=== PATIENT | male | born 1930 | race Caucasian/White ===

== ENCOUNTER 2016-02-26 08:54 | Observation (INO) | payer OTHER ==
[~2016-02-26] VITALS: Ht 167.6 cm; Wt 84.1 kg
[~2016-02-26 08:54] MED LIST: ALTACE10 MG PO; ALTACE2.5 MG PO; ALTACE5 MG PO; ASMANEX TW200 MICRO1 IH; ASPIR-LOW81 MG PO; ASPIRIN81 M1 PO; ASTEPRO 0.15%30 ML BOTH NARES; CENTRUM COMPLE1 EACH PO; CENTRUM SILVER1 EAC3 PO; CENTRUM SILVER1 EACH PO; CLARITIN,ALAVAR10 MG PO; CRESTOR40 MG PO; DIAZEPAM5 MG PO; FINASTERIDE5 M1 PO; FLONASE16 G1 BOTH NARES; IMDUR30 MG PO; LEVOTHROID,S0.112 MG PO; LEVOTHYROXINE125 MCG PO; MECLIZINE HCL12.5 M1 PO; PROSCAR5 MG PO; PROTONIX40 MG PO; TOPROL XL25 MG PO; TOPROL XL50 MG PO; UROXATRAL10 MG PO; XARELTO15 MG PO
[2016-02-26 10:07] LABS: EOSINOPHIL (%) 1.2 % (0-5); EOSINOPHIL COUNT 0.1 K/uL (0-0.3); HEMATOCRIT 44.8 % (38.0-50.0); LYMPHOCYTE COUNT 0.6 K/uL (1.0-2.8); MCHC 34.6 G/DL (30.0-36.0); MCV 104.2 FL (86-99); MEAN PLAT.VOLUME 10.2 uM^3 (9.0-12.4); MONOCYTE (%) 7.1 % (3-12); MONOCYTE COUNT 0.3 K/uL (0-0.8); NEUTROPHIL (%) 76.5 % (45-76); NEUTROPHIL COUNT 3.2 K/uL (1.8-6.4); PLATELET COUNT 117 K/uL (156-360); RBC DIS.WIDTH-CV 12.2 % (11.8-14.6); RBC DIS.WIDTH-SD 45.5 % (39-53); WHITE BLOOD COUNT 4.2 K/uL (4.1-10.2)
[2016-02-26 10:19] LABS: CHLORIDE 105 mEq/L (99-109); SODIUM 137 mEq/L (136-147)
[2016-02-26 10:21] LABS: GLUCOSE 129 mg/dL (70-99)
[2016-02-26 10:22] LABS: ANION GAP 10 MEQ/L (2-14)
[2016-02-26 10:25] LABS: GFR ESTIMATE (CALCULATED) > 59 mL/min/; UREA NITROGEN (BUN) 16 mg/dL (9-23)
[2016-02-26 10:26] LABS: TROP-I INTERPRETATION NEGATIVE; TROPONIN-I < 0.01 ng/mL (0.0-0.30)
[2016-02-26] MEDS ORDERED: XARELTO20 MG PO (11:11)
[2016-02-26] MEDS ORDERED: AMIODARONE HCL200 MG PO (11:12)
[2016-02-26] MEDS ORDERED: FISH OIL 1,0001 EAC7 PO (11:16)
[2016-02-26] MEDS ORDERED: ALIGN4 MG PO (11:16)
[2016-02-26] MEDS ORDERED: FIBER500 MG PO (11:16)
[2016-02-26 13:05] VITALS: BP 172/74
[2016-02-26 16:00] VITALS: BP 158/74
[2016-02-26 16:12] LABS: TROP-I INTERPRETATION NEGATIVE; TROPONIN-I < 0.01 ng/mL (0.0-0.30)
[2016-02-26 20:23] VITALS: BP 173/77
[2016-02-26 23:30] LABS: TROP-I INTERPRETATION NEGATIVE; TROPONIN-I < 0.01 ng/mL (0.0-0.30)
[2016-02-27 00:14] VITALS: BP 120/65
[2016-02-27 04:46] VITALS: BP 120/62
[2016-02-27 08:00] VITALS: BP 195/82
[2016-02-27 12:00] VITALS: BP 167/72
== END 2016-02-27 14:15 | disposition home or self-care (01) ==
LOC: EME 08:54 → EDOF 11:15 → 5WEST 11:15 → EDOF 11:15 → 5WEST 12:10
PROVIDERS: Emergency Medicine; Family Medicine
DX: R07.89 Other chest pain (principal); I48.0 Paroxysmal atrial fibrillation; I25.10 Atherosclerotic heart disease of native coronary artery without angina pectoris; Z95.5 Presence of coronary angioplasty implant and graft; I10 Essential (primary) hypertension; E78.5 Hyperlipidemia, unspecified; E03.9 Hypothyroidism, unspecified; J45.909 Unspecified asthma, uncomplicated; I49.5 Sick sinus syndrome; M79.602 Pain in left arm; Z87.891 Personal history of nicotine dependence; Z82.49 Family history of ischemic heart disease and other diseases of the circulatory system; Z88.1 Allergy status to other antibiotic agents; Z88.5 Allergy status to narcotic agent
CPT/HCPCS: 71020; 80048 91; 84484; 85025 91; 93005; 94640; 94640 76; 99281; 99285; G0378

== ENCOUNTER 2016-02-28 12:03 | Day surgery (SDC) | payer OTHER ==
[~2016-02-28] VITALS: Ht 175.3 cm; Wt 85.0 kg
[~2016-02-28 12:03] MED LIST changes: +ALIGN4 MG PO; +AMIODARONE HCL200 MG PO; +FIBER500 MG PO; +FISH OIL 1,0001 EAC7 PO; +XARELTO20 MG PO
[2016-02-28 17:15] VITALS: BP 152/70
[2016-02-28 19:00] VITALS: BP 154/72
[2016-02-29 00:02] VITALS: BP 158/82
[2016-02-29 04:12] VITALS: BP 142/64
[2016-02-29 07:19] VITALS: BP 140/74
[2016-02-29 13:09] VITALS: BP 145/65
== END 2016-02-29 13:19 | disposition home or self-care (01) ==
LOC: CATH 12:03 → 2SOUTH 14:53 → 4EAST 14:53
DX: I49.5 Sick sinus syndrome (principal); I48.91 Unspecified atrial fibrillation; E78.5 Hyperlipidemia, unspecified; K21.9 Gastro-esophageal reflux disease without esophagitis; I10 Essential (primary) hypertension; Z95.1 Presence of aortocoronary bypass graft; J44.9 Chronic obstructive pulmonary disease, unspecified; E03.9 Hypothyroidism, unspecified
CPT/HCPCS: 71010; 93005; C1785; C1892; C1894; C1898; G0378; J0690; J1200; J2250; J3010; S0020

== ENCOUNTER 2016-11-26 13:51 | Observation (INO) | payer OTHER ==
[~2016-11-26] VITALS: Ht 175.3 cm; Wt 78.4 kg
[2016-11-26 14:20] LABS: EOSINOPHIL (%) 1.4 % (0-5); EOSINOPHIL COUNT 0.1 K/uL (0-0.3); HEMATOCRIT 39.6 % (38.0-50.0); IMMATURE GRANULOCYTE (%) 0.6 % (0.0-0.7); INSTRUMENT ABS NEUTROPHIL CT 3.8 K/uL; LYMPHOCYTE COUNT 0.7 K/uL (1.0-2.8); MCH 36.3 PG (29.0-34.0); MCHC 34.6 G/DL (30.0-36.0); MEAN PLAT.VOLUME 9.7 uM^3 (9.0-12.4); MONOCYTE (%) 7.2 % (3-12); MONOCYTE COUNT 0.4 K/uL (0-0.8); NEUTROPHIL (%) 76.4 % (45-76); NEUTROPHIL COUNT 3.8 K/uL (1.8-6.4); PLATELET COUNT 157 K/uL (156-360); RBC DIS.WIDTH-SD 46.6 % (39-53); RED BLOOD COUNT 3.77 M/uL (4.00-5.50)
[2016-11-26 14:29] LABS: CHLORIDE 101 mEq/L (99-109); POTASSIUM 4.1 mEq/L (3.7-5.4); SODIUM 133 mEq/L (136-147)
[2016-11-26 14:31] LABS: GLUCOSE 96 mg/dL (70-99)
[2016-11-26 14:33] LABS: ANION GAP 6 MEQ/L (2-14)
[2016-11-26 14:35] LABS: GFR ESTIMATE (CALCULATED) > 59 mL/min/
[2016-11-26 14:36] LABS: UREA NITROGEN (BUN) 16 mg/dL (9-23)
[2016-11-26 14:40] LABS: TROP-I INTERPRETATION NEGATIVE; TROPONIN-I < 0.01 ng/mL (0.0-0.30)
[2016-11-26 17:34] VITALS: BP 187/88
[2016-11-26 18:17] LABS: TROP-I INTERPRETATION NEGATIVE; TROPONIN-I 0.02 ng/mL (0.0-0.30)
[2016-11-26] MEDS ORDERED: PRAVACHOL40 MG PO (18:18)
[2016-11-26] MEDS ORDERED: ARNUITY ELLIP200 MCG IH (18:27)
[2016-11-26] MEDS ORDERED: ALLEGRA60 MG PO (18:28)
[2016-11-26] MEDS ORDERED: NITROGLYCERIN0.4 MG SL (19:57)
[2016-11-26] MEDS ORDERED: LORAZEPAM0.5 MG PO (19:57)
[2016-11-26 21:13] VITALS: BP 166/77
[2016-11-26 23:46] VITALS: BP 170/80
[2016-11-27 01:06] LABS: TROP-I INTERPRETATION NEGATIVE; TROPONIN-I < 0.01 ng/mL (0.0-0.30)
[2016-11-27 03:44] VITALS: BP 154/78
[2016-11-27 05:34] LABS: TROP-I INTERPRETATION NEGATIVE; TROPONIN-I 0.02 ng/mL (0.0-0.30)
[2016-11-27 08:41] VITALS: BP 122/78
[2016-11-27 11:08] VITALS: BP 122/78
== END 2016-11-27 12:23 | disposition home or self-care (01) ==
LOC: EME 13:51 → EDOF 15:30 → 5WEST 15:30 → EDOF 15:30 → ENRESERV 15:50 → 5WEST 17:13
PROVIDERS: Emergency Medicine; Family Medicine
DX: R07.89 Other chest pain (principal); I25.10 Atherosclerotic heart disease of native coronary artery without angina pectoris; Z95.1 Presence of aortocoronary bypass graft; Z95.5 Presence of coronary angioplasty implant and graft; I48.0 Paroxysmal atrial fibrillation; I49.5 Sick sinus syndrome; Z95.0 Presence of cardiac pacemaker; R20.0 Anesthesia of skin; J44.9 Chronic obstructive pulmonary disease, unspecified; Z87.891 Personal history of nicotine dependence; I10 Essential (primary) hypertension; E78.5 Hyperlipidemia, unspecified; Z79.01 Long term (current) use of anticoagulants; K21.9 Gastro-esophageal reflux disease without esophagitis; Z90.49 Acquired absence of other specified parts of digestive tract
CPT/HCPCS: 71010; 80048; 84484; 85025; 93005; 94640; 94640 76; 99281; 99284; G0378

== ENCOUNTER → 2017-01-29 | Outpatient (CLI) | payer OTHER ==
[~2017-01-29] VITALS: Ht 172.7 cm; Wt 75.3 kg
[~2017-01-29] MED LIST changes: +ALLEGRA60 MG PO; +ARNUITY ELLIP200 MCG IH; +LORAZEPAM0.5 MG PO; +NITROGLYCERIN0.4 MG SL; +PACERONE100 MG PO; +PRAVACHOL40 MG PO; +PULMICORT FLE180 MCG IH
== END | disposition home or self-care (01) ==
LOC: AMB 11:22
PROC: 0DB68ZX Excision of Stomach, Via Natural or Artificial Opening Endoscopic, Diagnostic (ICD-10-PCS; principal; 2017-01-29)
DX: K22.2 Esophageal obstruction (principal); K29.50 Unspecified chronic gastritis without bleeding; K21.9 Gastro-esophageal reflux disease without esophagitis; I25.10 Atherosclerotic heart disease of native coronary artery without angina pectoris; K31.84 Gastroparesis; I10 Essential (primary) hypertension; E78.5 Hyperlipidemia, unspecified; J45.909 Unspecified asthma, uncomplicated; Z85.828 Personal history of other malignant neoplasm of skin; Z95.1 Presence of aortocoronary bypass graft; Z90.49 Acquired absence of other specified parts of digestive tract; Z95.0 Presence of cardiac pacemaker; Z87.891 Personal history of nicotine dependence
CPT/HCPCS: 88305; 88342 TC

== ENCOUNTER → 2017-02-18 | Outpatient (CLI) | payer OTHER | END | disposition home or self-care (01) | LOC: NUC 08:06 | DX: R10.13 Epigastric pain (principal); K21.9 Gastro-esophageal reflux disease without esophagitis | CPT/HCPCS: 78264; A9541 ==

== ENCOUNTER 2017-03-18 08:05 | Observation (INO) | payer OTHER ==
[~2017-03-18] VITALS: Ht 175.3 cm; Wt 76.5 kg
[2017-03-18 08:38] LABS: BASOPHIL (%) 0.3 % (0-1); EOSINOPHIL (%) 0.4 % (0-5); HEMATOCRIT 40.8 % (38.0-50.0); HEMOGLOBIN 14.7 G/DL (12.5-16.6); IMMATURE GRANULOCYTE (%) 0.5 % (0.0-0.7); LYMPHOCYTE (%) 7.6 % (15-42); LYMPHOCYTE COUNT 0.6 K/uL (1.0-2.8); MCH 37.6 PG (29.0-34.0); MCV 104.3 FL (86-99); MONOCYTE (%) 5.3 % (3-12); MONOCYTE COUNT 0.4 K/uL (0-0.8); NEUTROPHIL (%) 85.9 % (45-76); NEUTROPHIL COUNT 6.9 K/uL (1.8-6.4); PLATELET COUNT 148 K/uL (156-360); RBC DIS.WIDTH-CV 11.9 % (11.8-14.6); RBC DIS.WIDTH-SD 45.6 % (39-53); RED BLOOD COUNT 3.91 M/uL (4.00-5.50)
[2017-03-18 08:50] LABS: CHLORIDE 101 mEq/L (99-109)
[2017-03-18 08:51] LABS: SODIUM 134 mEq/L (136-147)
[2017-03-18 08:52] LABS: GLUCOSE 111 mg/dL (70-99)
[2017-03-18 08:56] LABS: CREATININE 1.2 mg/dL (0.6-1.3); GFR ESTIMATE (CALCULATED) > 59 mL/min/ (58.99-99999)
[2017-03-18 08:57] LABS: UREA NITROGEN (BUN) 17 mg/dL (9-23)
[2017-03-18] MEDS ORDERED: RANEXA500 MG PO (10:58)
[2017-03-18] MEDS ORDERED: AMIODARONE HCL200 MG PO (11:01)
[2017-03-18] MEDS ORDERED: ALFUZOSIN HCL10 MG PO (11:03)
[2017-03-18] MEDS ORDERED: FINASTERIDE5 MG PO (11:04)
[2017-03-18] MEDS ORDERED: PRAVASTATIN SOD40 MG PO (11:05)
[2017-03-18] MEDS ORDERED: ALTACE10 MG PO (11:15)
[2017-03-18 16:05] VITALS: BP 178/81
[2017-03-18 17:34] VITALS: BP 189/84
[2017-03-18 17:36] VITALS: BP 182/79
[2017-03-18 17:38] VITALS: BP 166/77
[2017-03-18 20:27] VITALS: BP 148/70
[2017-03-19] VITALS (7 sets, daily range): BP systolic 148–187; BP diastolic 66–81
[2017-03-19 06:01] LABS: BASOPHIL (%) 0.2 % (0-1); EOSINOPHIL (%) 1.9 % (0-5); EOSINOPHIL COUNT 0.1 K/uL (0-0.3); HEMATOCRIT 38.6 % (38.0-50.0); HEMOGLOBIN 13.8 G/DL (12.5-16.6); IMMATURE GRANULOCYTE (%) 0.3 % (0.0-0.7); LYMPHOCYTE (%) 12.8 % (15-42); LYMPHOCYTE COUNT 0.7 K/uL (1.0-2.8); MCH 37.4 PG (29.0-34.0); MCHC 35.8 G/DL (30.0-36.0); MCV 104.6 FL (86-99); MONOCYTE COUNT 0.5 K/uL (0-0.8); NEUTROPHIL (%) 75.8 % (45-76); NEUTROPHIL COUNT 4.4 K/uL (1.8-6.4); PLATELET COUNT 152 K/uL (156-360); RBC DIS.WIDTH-SD 46.2 % (39-53); RED BLOOD COUNT 3.69 M/uL (4.00-5.50); WHITE BLOOD COUNT 5.8 K/uL (4.1-10.2)
[2017-03-19 06:22] LABS: CHLORIDE 101 MEQ/L (99-109); CREATININE 1.1 MG/DL (0.6-1.3); GFR ESTIMATE (CALCULATED) > 59 mL/min/ (58.99-99999); GLUCOSE 108 mg/dL (70-99); POTASSIUM 3.5 MEQ/L (3.7-5.4); SODIUM 132 MEQ/L (136-147); UREA NITROGEN (BUN) 12 mg/dL (9-23)
[2017-03-19 10:54] LABS: TROP-I INTERPRETATION NEGATIVE; TROPONIN-I 0.01 ng/mL (0.0-0.30)
== END 2017-03-19 19:37 | disposition home or self-care (01) ==
LOC: EME 08:05 → 5WEST 11:41 → EDOF 11:41 → ENRESERV 11:45 → 5WEST 15:39
PROVIDERS: Emergency Medicine; Family Medicine; Internal Medicine Cardiovascular Disease
PROC: 0HQ0XZZ Repair Scalp Skin, External Approach (ICD-10-PCS; principal; 2017-03-18)
DX: R55 Syncope and collapse (principal); R42 Dizziness and giddiness; S01.01XA Laceration without foreign body of scalp, initial encounter; I25.10 Atherosclerotic heart disease of native coronary artery without angina pectoris; Z95.1 Presence of aortocoronary bypass graft; I10 Essential (primary) hypertension; E78.5 Hyperlipidemia, unspecified; I48.0 Paroxysmal atrial fibrillation; I49.5 Sick sinus syndrome; Z95.0 Presence of cardiac pacemaker; Z79.01 Long term (current) use of anticoagulants; Z87.891 Personal history of nicotine dependence; E03.9 Hypothyroidism, unspecified; J45.909 Unspecified asthma, uncomplicated; K21.9 Gastro-esophageal reflux disease without esophagitis; N40.0 Benign prostatic hyperplasia without lower urinary tract symptoms; Z90.49 Acquired absence of other specified parts of digestive tract; Z82.49 Family history of ischemic heart disease and other diseases of the circulatory system; Z88.5 Allergy status to narcotic agent; Z88.1 Allergy status to other antibiotic agents; W18.12XA Fall from or off toilet with subsequent striking against object, initial encounter; Y92.002 Bathroom of unspecified non-institutional (private) residence as the place of occurrence of the external cause
CPT/HCPCS: 70450; 80048; 84484; 85025; 93005; 94640; 94640 76; 99281; 99285; G0378; J7030

== ENCOUNTER 2017-03-28 20:55 | Emergency (ER) | payer OTHER ==
[~2017-03-28] VITALS: Ht 175.3 cm; Wt 78.2 kg
[~2017-03-28 20:55] MED LIST changes: +ALFUZOSIN HCL10 MG PO; +FINASTERIDE5 MG PO; +PRAVASTATIN SOD40 MG PO; +RANEXA500 MG PO
[2017-03-28 22:03] LABS: BASOPHIL (%) 0.7 % (0-1); EOSINOPHIL COUNT 0.1 K/uL (0-0.3); HEMATOCRIT 37.1 % (38.0-50.0); HEMOGLOBIN 13.3 G/DL (12.5-16.6); IMMATURE GRANULOCYTE (%) 0.4 % (0.0-0.7); LYMPHOCYTE (%) 18.8 % (15-42); LYMPHOCYTE COUNT 0.9 K/uL (1.0-2.8); MCH 37.3 PG (29.0-34.0); MCHC 35.8 G/DL (30.0-36.0); MCV 103.9 FL (86-99); MONOCYTE (%) 9.7 % (3-12); MONOCYTE COUNT 0.4 K/uL (0-0.8); NEUTROPHIL (%) 68.4 % (45-76); NEUTROPHIL COUNT 3.1 K/uL (1.8-6.4); PLATELET COUNT 153 K/uL (156-360); RBC DIS.WIDTH-CV 11.8 % (11.8-14.6); RBC DIS.WIDTH-SD 45.1 % (39-53); RED BLOOD COUNT 3.57 M/uL (4.00-5.50); WHITE BLOOD COUNT 4.5 K/uL (4.1-10.2)
[2017-03-28 22:18] LABS: CHLORIDE 99 mEq/L (99-109); POTASSIUM 3.9 mEq/L (3.7-5.4); SODIUM 132 mEq/L (136-147)
[2017-03-28 22:20] LABS: GLUCOSE 98 mg/dL (70-99)
[2017-03-28 22:24] LABS: GFR ESTIMATE (CALCULATED) > 59 mL/min/ (58.99-99999)
[2017-03-28 22:25] LABS: TROP-I INTERPRETATION NEGATIVE; TROPONIN-I < 0.01 ng/mL (0.0-0.30); UREA NITROGEN (BUN) 17 mg/dL (9-23)
[2017-03-29 00:14] LABS: APPEARANCE CLEAR ((CLEAR)); BILIRUBIN NEGATIVE; BLOOD MODERATE; COLOR STRAW ((YELLOW)); GLUCOSE (STRIP) NEGATIVE; KETONES NEGATIVE; LEUKOCYTES NEGATIVE; NITRITE NEGATIVE; PROTEIN (STRIP) NEGATIVE; SPECIFIC GRAVITY 1.008 (1.000-1.030); UROBILINOGEN 0.2 MG/DL (0.2-1.0)
[2017-03-29 00:17] LABS: BACTERIA NONE SEEN /HPF; EPITHELIAL CELLS RARE /HPF; MUCUS NONE SEEN /LPF; RED BLOOD CELLS TNTC /HPF (0-5); UCUL ADDED? YES; WHITE BLOOD CELLS 0-5 /HPF (0-5)
[2017-03-29 02:17] LABS: TROP-I INTERPRETATION NEGATIVE; TROPONIN-I < 0.01 ng/mL (0.0-0.30)
[2017-03-29 03:30] VITALS: BP 153/76
== END 2017-03-29 04:00 | disposition home or self-care (01) ==
LOC: EME 20:55
PROVIDERS: Emergency Medicine
DX: R55 Syncope and collapse (principal); K21.9 Gastro-esophageal reflux disease without esophagitis; J45.909 Unspecified asthma, uncomplicated; I10 Essential (primary) hypertension; E78.5 Hyperlipidemia, unspecified; I48.91 Unspecified atrial fibrillation; I67.89 Other cerebrovascular disease; Z79.01 Long term (current) use of anticoagulants; Z87.891 Personal history of nicotine dependence; Z95.1 Presence of aortocoronary bypass graft; Z90.49 Acquired absence of other specified parts of digestive tract; Z90.89 Acquired absence of other organs; Z85.9 Personal history of malignant neoplasm, unspecified; Z88.5 Allergy status to narcotic agent; Z88.8 Allergy status to other drugs, medicaments and biological substances
CPT/HCPCS: 70450; 71045; 80048; 81003; 84484; 85025; 87086; 93005; 99281; 99285

== ENCOUNTER 2017-05-07 17:41 | Emergency (ER) | payer OTHER ==
[~2017-05-07] VITALS: Ht 175.3 cm; Wt 78.0 kg
[2017-05-07 19:29] LABS: BASOPHIL (%) 0.8 % (0-1); EOSINOPHIL (%) 3.1 % (0-5); EOSINOPHIL COUNT 0.2 K/uL (0-0.3); HEMATOCRIT 40.1 % (38.0-50.0); HEMOGLOBIN 14.4 G/DL (12.5-16.6); IMMATURE GRANULOCYTE (%) 0.4 % (0.0-0.7); LYMPHOCYTE COUNT 0.8 K/uL (1.0-2.8); MCH 37.5 PG (29.0-34.0); MCHC 35.9 G/DL (30.0-36.0); MCV 104.4 FL (86-99); MONOCYTE (%) 7.4 % (3-12); MONOCYTE COUNT 0.4 K/uL (0-0.8); NEUTROPHIL (%) 71.3 % (45-76); NEUTROPHIL COUNT 3.5 K/uL (1.8-6.4); PLATELET COUNT 153 K/uL (156-360); RBC DIS.WIDTH-CV 11.9 % (11.8-14.6); RBC DIS.WIDTH-SD 46.1 % (39-53); RED BLOOD COUNT 3.84 M/uL (4.00-5.50); WHITE BLOOD COUNT 4.9 K/uL (4.1-10.2)
[2017-05-07 19:39] LABS: CHLORIDE 97 mEq/L (99-109); SODIUM 130 mEq/L (136-147)
[2017-05-07 19:41] LABS: GLUCOSE 97 mg/dL (70-99)
[2017-05-07 19:45] LABS: CREATININE 1.2 mg/dL (0.6-1.3); GFR ESTIMATE (CALCULATED) > 59 mL/min/ (58.99-99999)
[2017-05-07 19:46] LABS: UREA NITROGEN (BUN) 17 mg/dL (9-23)
[2017-05-07 19:53] LABS: TROP-I INTERPRETATION NEGATIVE; TROPONIN-I < 0.01 ng/mL (0.0-0.30)
[2017-05-07 19:59] LABS: APPEARANCE CLEAR ((CLEAR)); BILIRUBIN NEGATIVE; BLOOD NEGATIVE; COLOR STRAW ((YELLOW)); GLUCOSE (STRIP) NEGATIVE; KETONES NEGATIVE; LEUKOCYTES NEGATIVE; NITRITE NEGATIVE; PROTEIN (STRIP) NEGATIVE; UCUL ADDED? NO; UROBILINOGEN 0.2 MG/DL (0.2-1.0)
[2017-05-07] MEDS ORDERED: APRESOLINE25 MG PO (21:37)
[2017-05-07] MEDS ORDERED: PANTOPRAZOLE SO40 MG PO (21:39)
[2017-05-07] MEDS ORDERED: RAMIPRIL5 MG PO (21:39)
[2017-05-07] MEDS ORDERED: LORAZEPAM0.5 MG PO (21:39)
[2017-05-07] MEDS ORDERED: IMDUR30 MG PO (21:40)
[2017-05-07] MEDS ORDERED: IMDUR60 MG PO (21:40)
[2017-05-07 21:54] VITALS: BP 174/81
== END 2017-05-07 21:56 | disposition home or self-care (01) ==
LOC: EME 17:41
PROVIDERS: Emergency Medicine
DX: I10 Essential (primary) hypertension (principal); R20.0 Anesthesia of skin; Z95.1 Presence of aortocoronary bypass graft; Z95.0 Presence of cardiac pacemaker; E78.5 Hyperlipidemia, unspecified; I44.0 Atrioventricular block, first degree; Z87.891 Personal history of nicotine dependence; J45.909 Unspecified asthma, uncomplicated; K21.9 Gastro-esophageal reflux disease without esophagitis; Z88.5 Allergy status to narcotic agent
CPT/HCPCS: 70450; 80048; 81003; 83605; 84484; 85025; 93005; 99281; 99285

== ENCOUNTER 2017-05-09 00:20 | Observation (INO) | payer OTHER ==
[~2017-05-09] VITALS: Ht 175.3 cm; Wt 79.5 kg
[~2017-05-09 00:20] MED LIST changes: +APRESOLINE25 MG PO; +IMDUR60 MG PO; +PANTOPRAZOLE SO40 MG PO; +RAMIPRIL5 MG PO
[2017-05-09 01:41] LABS: HEMOGLOBIN 14.6 G/DL (12.5-16.6); MCH 37.4 PG (29.0-34.0); MCHC 35.6 G/DL (30.0-36.0); MCV 105.1 FL (86-99); PLATELET COUNT 169 K/uL (156-360); RBC DIS.WIDTH-SD 46.9 % (39-53); WHITE BLOOD COUNT 5.7 K/uL (4.1-10.2)
[2017-05-09 01:48] LABS: INTER. NORMALIZED RATIO 1.5
[2017-05-09 01:50] LABS: PTT 35.2 SEC (25-37)
[2017-05-09 01:53] LABS: CHLORIDE 99 mEq/L (99-109); POTASSIUM 3.8 mEq/L (3.7-5.4); SODIUM 132 mEq/L (136-147)
[2017-05-09 01:55] LABS: GLUCOSE 113 mg/dL (70-99); TOTAL PROTEIN 6.4 g/dL (6.4-8.3)
[2017-05-09 01:57] LABS: TOTAL BILIRUBIN 0.7 mg/dL (0.0-1.0)
[2017-05-09 01:58] LABS: TROP-I INTERPRETATION NEGATIVE; TROPONIN-I < 0.01 ng/mL (0.0-0.30)
[2017-05-09 01:59] LABS: ALKALINE PHOSPHATASE 47 IU/L (3-129); GFR ESTIMATE (CALCULATED) > 59 mL/min/ (58.99-99999)
[2017-05-09 02:00] LABS: UREA NITROGEN (BUN) 21 mg/dL (9-23)
[2017-05-09 02:01] LABS: AST (GOT) 16 IU/L (2-34)
[2017-05-09 02:02] LABS: ALT (GPT) 14 IU/L (3-49); LIPASE 12 U/L (1.0-51.0)
[2017-05-09 03:58] VITALS: BP 157/70
[2017-05-09 06:39] LABS: TROP-I INTERPRETATION NEGATIVE; TROPONIN-I 0.02 ng/mL (0.0-0.30)
[2017-05-09 07:36] VITALS: BP 125/76
[2017-05-09 11:19] VITALS: BP 120/70
[2017-05-09 11:45] VITALS: BP 132/63
[2017-05-09 12:36] LABS: TROP-I INTERPRETATION NEGATIVE; TROPONIN-I 0.02 ng/mL (0.0-0.30)
[2017-05-09] MEDS ORDERED: NASAL ALLERGY16.9 ML BOTH NARES (13:03)
[2017-05-09] MEDS ORDERED: APRESOLINE25 MG PO (14:09)
== END 2017-05-09 15:33 | disposition home or self-care (01) ==
LOC: EME → EDBD 00:20 → 5WEST 02:36 → EDOF 02:36 → ENRESERV 02:37 → 5WEST 03:46
PROVIDERS: Emergency Medicine; Family Medicine
DX: I48.0 Paroxysmal atrial fibrillation (principal); I25.10 Atherosclerotic heart disease of native coronary artery without angina pectoris; Z95.1 Presence of aortocoronary bypass graft; J45.909 Unspecified asthma, uncomplicated; I10 Essential (primary) hypertension; E78.5 Hyperlipidemia, unspecified; I49.5 Sick sinus syndrome; Z95.0 Presence of cardiac pacemaker; Z87.891 Personal history of nicotine dependence; K21.9 Gastro-esophageal reflux disease without esophagitis; E03.9 Hypothyroidism, unspecified; N40.0 Benign prostatic hyperplasia without lower urinary tract symptoms; Z90.49 Acquired absence of other specified parts of digestive tract; Z82.49 Family history of ischemic heart disease and other diseases of the circulatory system; Z88.5 Allergy status to narcotic agent; Z88.1 Allergy status to other antibiotic agents
CPT/HCPCS: 71045; 80048; 80053; 83690; 83735; 83880; 84100; 84484; 85027; 85610; 85730; 93005; G0378

== ENCOUNTER 2017-07-23 22:56 | Emergency (ER) | payer OTHER ==
[~2017-07-23] VITALS: Ht 175.3 cm; Wt 87.4 kg
[~2017-07-23 22:56] MED LIST changes: +NASAL ALLERGY16.9 ML BOTH NARES
[2017-07-24 02:48] VITALS: BP 190/80
== END 2017-07-24 02:45 | disposition home or self-care (01) ==
LOC: EME → EDBD 22:56 → EME 07-24 02:45
DX: R51 Headache (principal); M54.2 Cervicalgia; I10 Essential (primary) hypertension; E78.5 Hyperlipidemia, unspecified; I48.91 Unspecified atrial fibrillation; Z95.1 Presence of aortocoronary bypass graft; Z79.01 Long term (current) use of anticoagulants; J45.909 Unspecified asthma, uncomplicated; Z87.891 Personal history of nicotine dependence
CPT/HCPCS: 70450; 99281; 99285; J0780; J1885; J7030